=== PATIENT | female | born 1960 | race Two or more races ===

== ENCOUNTER 2021-01-08 11:36 | Outpatient (CLI) | payer OTHER | END 2021-01-08 23:59 | disposition home or self-care (01) | LOC: LAB 11:36 | PROVIDERS: ATTEND Student in an Organized Health Care Education/Training Program | DX: Z01.818 Encounter for other preprocedural examination (principal); Z20.822 Contact with and (suspected) exposure to COVID-19 | CPT/HCPCS: 71045; 87426; C9803; U0003 ==

== ENCOUNTER 2021-01-13 11:55 | Day surgery (SDC) | payer OTHER ==
[~2021-01-13 11:55] MED LIST: EPINEPHRINE (1:1000) 1 MG/ML AMPUL ONE
[2021-01-13] MEDS ORDERED: BUPIVACAINE 0.25% 75 MG/30 ML VIAL ONE ×2 (12:00→13:34)
[2021-01-13] MEDS ORDERED: BACITRACIN 50000 UNITS/VIAL ONE (12:31)
[2021-01-13] MEDS ORDERED: MIDAZOLAM HCL 2 MG/2ML VIAL ONE (13:32)
[2021-01-13] MEDS ORDERED: FENTANYL PF 250MCG/5ML AMPUL ONE (13:32)
[2021-01-13] MEDS ORDERED: HYDROMORPHONE INJ 2 MG/ML DISP.SYRIN ONE (13:33)
[2021-01-13] MEDS ORDERED: ROCURONIUM BROMIDE 50 MG/5 ML ONE (13:33)
[2021-01-13] MEDS ORDERED: FAMOTIDINE/PF INJ 20 MG/2 ML VIAL IV ONE (13:34)
[2021-01-13] MEDS ORDERED: GLYCOPYRROLATE 0.2 MG/ML VIAL ONE (15:29)
[2021-01-13] MEDS ORDERED: BUPIVACAINE 0.5 % PF 150 MG/30 ML VIAL ONE (15:49)
== END 2021-01-13 17:40 | disposition home or self-care (01) ==
LOC: DS 11:55
PROVIDERS: ATTEND Student in an Organized Health Care Education/Training Program
DX: G56.02 Carpal tunnel syndrome, left upper limb (principal); M65.812 Other synovitis and tenosynovitis, left shoulder; M75.102 Unspecified rotator cuff tear or rupture of left shoulder, not specified as traumatic; Z90.710 Acquired absence of both cervix and uterus; Z79.899 Other long term (current) drug therapy
CPT/HCPCS: 29824; 29826; 29827; 64721; A4217; A4565; A6402; C1713; J0171; J0690; J1170; J2250; J2704; J2765; J3010; J3490 ×7